=== PATIENT | female | born 1980 | race Caucasian/White ===

== ENCOUNTER → 2018-12-05 | Outpatient (CLI) | payer OTHER ==
[2014-11-26 07:25] VITALS: BMI 32.3
[~2018-12-05] MED LIST: ACET-2007 PO; Benzocaine 60 ML TP; CHOL400C10 PO; DOCU240C67 PO; HYDR-385 PO; IBUP600T22 PO; IBUP800T37 PO; Lanolin TP; NAPR220C12 PO; OMEP-218 PO; PNV-9 PO; TUCKS TP
[2018-12-05 11:45] LABS: PLATELET COUNT, AUTOMATED 174 K/uL (150-450)
[2018-12-05 15:24] LABS: LDL CHOLESTEROL 108 mg/dl
--- NOTE | 2018-12-05 17:25 | EKG ---
FACILITY: [facility] - [place] PATIENT NAME: SHAYLA TSAI : [id number] MR: [id number]: [id number] EXAM DATE: ORDERING PHYSICIAN: GILBERTO CASTILLO TECHNOLOGIST: CARINE BLAKELY Test Reason : Chest pain Blood Pressure : / mmHG Vent. Rate : 056 BPM Atrial Rate : 056 BPM P-R Int : 172 ms QRS Dur : 078 ms QT Int : 412 ms P-R-T Axes : 043 013 027 degrees QTc Int : 397 ms Sinus bradycardia Otherwise normal ECG No previous ECGs available Referred By: WILL Confirmed By:
== END ==
LOC: LAB 11:17
PROVIDERS: ATTEND Emergency Medicine
DX: G62.9 Polyneuropathy, unspecified (principal); M79.659 Pain in unspecified thigh; R00.1 Bradycardia, unspecified
CPT/HCPCS: 36415; 82040; 82247; 82306; 82310; 82374; 82435; 82465; 82565; 82607; 82947; 83036; 83718; 84075; 84132; 84155; 84295; 84425; 84443; 84450; 84460; 84478; 84520; 85025; 85379; 86038